=== PATIENT | male | born 1975 | race American Indian/Alaskan Native ===

== ENCOUNTER 2021-08-22 05:03 | Emergency (ER) | payer MEDICAID ==
[2021-08-22] MEDS ORDERED: MORPHINE 4 MG/1 ML INJ IV ONE (06:16)
[2021-08-22] MEDS ORDERED: SODIUM CHLORIDE 0.9% 1000 ML 1,000 ML IV ONE (06:16)
[2021-08-22] MEDS ORDERED: ONDANSETRON 4 MG/2 ML INJ IV ONE (06:16)
[2021-08-22 06:46] LABS: Eosinophils # (Auto) 0.3 K/mm3 (0.0-0.4); Eosinophils % (Auto) 6.5 % (0.0-4.3); Hematocrit 44.2 % (35.5-45.6); Hemoglobin 14.3 gm/dl (11.8-15.2); Lymphocytes # (Auto) 1.4 K/mm3 (1.2-5.4); Lymphocytes % (Auto) 28.3 % (13.4-35.0); Mean Corpuscular HGB Conc 32 % (32-34); Mean Corpuscular Volume 90 fl (84-94); Monocytes # (Auto) 0.8 K/mm3 (0.0-0.8); Monocytes % (Auto) 15.1 % (0.0-7.3); Platelet Count 288 K/mm3 (140-440); Red Blood Count 4.91 M/mm3 (3.65-5.03); Red Cell Distribution Width 15.3 % (13.2-15.2)
[2021-08-22 06:57] LABS: Alanine Aminotransferase 10 units/L (7-56); Albumin 2.9 g/dL (3.9-5); BUN/Creatinine Ratio 16; Blood Urea Nitrogen 16 mg/dL (9-20); Calcium 7.6 mg/dL (8.4-10.2); Hemolysis Index 19
[2021-08-22 06:59] LABS: Bilirubin,Direct < 0.2 mg/dL (0-0.2)
[2021-08-22 08:23] LABS: Bilirubin,Urine NEG (Negative); Blood,Urine NEG (Negative); Color,Urine Yellow (Yellow); Mucus,Urine FEW /HPF
--- NOTE | 2021-08-22 09:36 | Cat Scan Report ---
CT OF THE ABDOMEN AND PELVIS WITH INTRAVENOUS CONTRAST INDICATION / CLINICAL INFORMATION: Lower abdominal pain. TECHNIQUE: The patient received 100 cc Omnipaque [address] scans at this location are performed using CT dose reduction for ALARA by means of automated exposure control. COMPARISON: None available. FINDINGS: ABDOMEN: The liver, spleen, gallbladder, bile ducts pancreas, adrenal glands, kidneys and bowel demon strate no significant abnormality. No adenopathy is present. There is mild rounded atelectasis/scarri ng in the right posterior lung base. PELVIS: The prostate gland is mildly enlarged. The seminal vesicles are normal. The distal ureters an d urinary bladder are unremarkable. I see no evidence of appendicitis or diverticulitis. No abnormal mass or fluid collection is seen. I do not identify a hernia. There is mild spondylosis. IMPRESSION: No acute abnormality is identified. Signer Name: Cristino Iglesias MD Signed: 08/22/2021 9:31 AM Workstation Name: [id number]
--- NOTE | 2021-08-22 09:47 | Emergency Department Report ---
ED Abdominal Pain HPI - General Chief Complaint: Abdominal Pain Stated Complaint: GROIN PAIN/POSSIBLE HERNIA Time Seen by Provider: 08/22/21 06:06 Source: patient Mode of arrival: Ambulatory Limitations: No Limitations - History of Present Illness Initial Comments: right groin pn x 2 weeks, Lump in Right groin x 48 hrs, Cough x 2 weeks then noted groin pn Pt denies trauma or prior occurance No Doctor seen, no meds taken, Denies any other complaints Amb, A&Ox3, +MSCx4, MANAGER OUTPATIENT<2, NAD -: week(s) Location: RLQ Radiation: none Migration to: no migration Severity scale (0 -10): 4 Quality: aching Consistency: constant, intermittent Improves With: nothing - Related Data Allergies Allergy/AdvReac Type Severity Reaction Status Date / Time No Known Allergies Allergy Verified 08/22/21 05:40 ED Review of Systems ROS: Stated complaint: GROIN PAIN/POSSIBLE HERNIA Other details as noted in HPI Constitutional: denies: chills, fever Eyes: denies: eye pain, eye discharge, vision change ENT: denies: ear pain, throat pain Respiratory: denies: cough, shortness of breath, wheezing Cardiovascular: denies: chest pain, palpitations Endocrine: no symptoms reported Gastrointestinal: denies: abdominal pain, nausea, diarrhea Genitourinary: denies: urgency, dysuria Musculoskeletal: denies: back pain, joint swelling, arthralgia Skin: denies: rash, lesions Neurological: denies: headache, weakness, paresthesias Psychiatric: denies: anxiety, depression Hematological/Lymphatic: denies: easy bleeding, easy bruising ED Past Medical Hx - Past Medical History Previous Medical History?: Yes Additional medical history: sleep apnea - Surgical History Past Surgical History?: Yes Additional Surgical History: sleep apnea ED Physical Exam - General Limitations: No Limitations General appearance: alert, in no apparent distress - Head Head exam: Present: atraumatic, normocephalic - Eye Eye exam: Present: normal appearance - ENT ENT exam: Present: mucous membranes moist - Neck Neck exam: Present: normal inspection - Respiratory Respiratory exam: Present: normal lung sounds bilaterally. Absent: respiratory distress - Cardiovascular Cardiovascular Exam: Present: regular rate, normal rhythm. Absent: systolic murmur, diastolic murmur, rubs, gallop - GI/Abdominal GI/Abdominal exam: Present: soft, tenderness, normal bowel sounds - Rectal Rectal exam: Present: deferred - Extremities Exam Extremities exam: Present: normal inspection - Back Exam Back exam: Present: normal inspection - Neurological Exam Neurological exam: Present: alert, oriented X3 - Psychiatric Psychiatric exam: Present: normal affect, normal mood - Skin Skin exam: Present: warm, dry, intact, normal color. Absent: rash ED Course Vital Signs 08/22/21 05:31 Temperature 98.5 F Pulse Rate 102 H Respiratory 18 Rate Blood Pressure 115/60 [Left] O2 Sat by Pulse 99 Oximetry - Reevaluation(s) Reevaluation #1: 08/22/21 09:46 work up neg , ct negative refused pain meds ED Medical Decision Making - Lab Data Result diagrams: 08/22/21 06:30 08/22/21 06:30 Critical care attestation.: If time is entered above; I have spent that time in minutes in the direct care of this critically ill patient, excluding procedure time. ED Disposition Clinical Impression: Abdominal pain, Incisional hernia Disposition: 30 STILL A PATIENT Is pt being admited?: No Does the pt Need Aspirin: No Condition: Stable Instructions: Hernia, Adult Referrals: PRIMARY CARE, [Primary Care Provider] - 3-5 Days SANDRA HANKS MD [Staff Physician] - 3-5 Days
[2021-08-22 10:31] VITALS: BP 106/69
== END 2021-08-22 10:32 | disposition still patient (30) ==
LOC: ED 05:03
DX: K43.2 Incisional hernia without obstruction or gangrene (principal); Z98.890 Other specified postprocedural states
CPT/HCPCS: 36415; 74177; 80048; 80076; 81001; 83690; 85025; 96360; 99284; J2270; J2405; J7030; Q9967; Q0162